=== PATIENT | female | born 1945 | race Caucasian/White ===

== ENCOUNTER 2021-11-01 18:00 | Emergency (ER) | payer MEDICARE, MEDICAID, SELFPAY ==
[2021-11-01 18:20] VITALS: BP 140/80; PULSE 107; RESP 20; TEMP 36.9; O2SAT 97; BMI 20.1
[2021-11-01 18:40] LABS: Apearance,Urine Clear (Clear); Color,Urine Dark Yellow (Yellow)
--- NOTE | 2021-11-01 18:40 | PC.NURSE ---
PATIENT SENT TO ER PER Avery MUELLER APRN FOR FURTHER EVALUATION. REPORT GIVEN TO Ines PITTS RN BY Avery MUELLER APRN
[2021-11-01 18:41] LABS: Bilirubin,Urine Negative (Negative); Blood, Urine Trace (Negative); Glucose,Urine (UA) Negative (Negative); Ketones,Urine Negative (Negative); PH,Urine 5.5 (5.0-8.5); Protein,Urine Negative (Negative); UTC Leukocyte Esterase,Urine Trace (Negative); UTC Nitrate,Urine Negative (Negative); Urobilinogen,Urine 0.2 EU/dl (0.2)
--- NOTE | 2021-11-01 18:43 | HMH.EDUTC ---
[facility] – [place], [place] Disposition Clinical Impression: Weakness Disposition: Still a Patient Condition on Discharge: Fair Referrals: Zeferino Muñiz DO [Primary Care Provider] - Medical Decision Making - Gavino Inquiry Pt receiving controlled substance: No Gavino was queried for this patient: No Vital Signs: 11/01/21 18:20 Temperature 98.4 F Temperature Source Oral Pulse Rate [Right Brachial] 107 H Respiratory Rate 20 Blood Pressure [Right Arm] 140/80 Blood Pressure Mean [Right Arm] 100 Blood Pressure Source [Right Arm] Automatic Cuff Blood Pressure Position [Right Arm] Sitting 02 Sat by Pulse Oximetry 97 Oxygen Delivery Method Room Air - Lab Data Lab Results 11/01/21 18:26: Urine Color Dark yellow, Urine Appearance Clear, Urine pH 5.5, Ur Specific [place] 1.030, Urine Protein Negative, Urine Glucose (UA) Negative, Urine Ketones Negative, Urine Blood Trace, Urine Nitrate Negative, Urine Bilirubin Negative, Urine Urobilinogen 0.2, Ur Leukocyte Esterase Trace Orders (Tests/Meds): ORDERS Category Date Time Status Urine Culture Stat Micro 11/01/21 18:38 Received Medical Decision Narrative: Due to patient age and complaints of new onset weakness, edema in lower extremities and unable to walk without falling and episodes of confusion discussed with family and recommended transfer to the ED for further work up and evaluation and family agreed Called ED spoke with Angella and patient was assigned room 1 patient was moved to the ED for further work up and evaluation [facility] – [place], [place] HPI - General Stated complaint: UTI, ears, weak, dizzy Time Seen by Provider: 11/01/21 18:43 Mode of Arrival: Ambulatory Source of Information: Patient, Relative Limitations: No Limitations Description of Symptoms (Recalled from Triage Doc. by RN): PATIENT AND FAMILY REPORT WEAKNESS, TROUBLE WALKING, BLE EDEMA, EPISODES OF CONFUSION, DIZZINESS AND FREQUENT FALLS. PATIENT STATES SHE HAS A HISTORY OF VERITGO, BUT HER DIZZINESS HAS GOTTEN WORSE OVER THE PAST FEW MONTHS. SHE ALSO STATES EDEMA TO LEGS IS NEW WELL HEENT Symptoms (Recalled from RN notes): No Resp Symptoms (Recalled from RN notes): No Skin Symptoms (Recalled from RN notes): No MS Symptoms (Recalled from RN notes): No Functional Status (Recalled from RN notes): WNL - History of Present Illness Provider Complaint: Patient family states that patient was living in [facility] but she was falling alot and they was worried so they brought her here to live with them States that she was able to walk ok with her walker prior but now has been unable to walk without falling and without assistance, States she has been having episodes of confusion, dizziness, weakness and bilateral swelling in her lower extremities that is new States that she has a history of vertigo but it has got worse now where she falls if she does not have someone holding onto her. Daughter states that she had blood work in [employer] in Sep and her WBC count was high and her iron was low. and she was put on antibiotics which she has finished now States that they was concerned because she was so weak so they brought her in to get her checked out - Worker's Comp Is this a Worker's Comp case?: No [facility] History - Hepatitis A Screen Drug use history?: No High risk sexual behaviors?: No History of sexually transmitted infection?: No Currently employed?: No Childcare worker?: No Do you have indoor plumbing?: Yes Do you have electricity?: Yes Attestation statement:: This patient has been screened for Hepatitis A risk factors. I have reviewed the patient's past medical history: Yes - Social History Smoking Status: Current every day smoker Tobacco Type: cigarettes # Packs/Day (cigarettes): 1 Alcohol Intake: never Occupational Status: other ROS Obtained: Yes All systems reviewed & no additional complaints, Yes Systems reviewed as appropriate & no additional complaints - Constitutional Constitutional: Reports system re
[2021-11-01 18:47] VITALS: BP 152/82; PULSE 104; RESP 16; TEMP 36.6; O2SAT 98; BMI 26.9
--- NOTE | 2021-11-01 19:00 | ECG_ITS ---
APPROVED REPORT Exam: Resting ECG HR:98 bpm ECG Measurements Heart Rate 98 AXES PA 155 P 65 QRSd 100 QRS -56 QT 371 T 74 QTc 426 Conclusion SINUS RHYTHM POSSIBLE LEFT ATRIAL ENLARGEMENT [-0.1mV P-WAVE IN V1/V2] LEFT ANTERIOR FASCICULAR BLOCK [QRS AXIS <= -45, QR IN I, RS IN II] ABNORMAL ECG UNCONFIRMED REPORT Electronically signed by : George Ababsi MD 11/02/2021 09:10:42
--- NOTE | 2021-11-01 19:05 | XR_ITS ---
PROCEDURE INFORMATION: Exam: XR Chest Exam date and time: 11/01/2021 7:05 PM Age: 76 years old Clinical indication: Other: Weakness TECHNIQUE: Imaging protocol: XR of the chest. Views: 1 view. COMPARISON: No relevant prior studies available. FINDINGS: Lungs: Right basilar subsegmental atelectasis. Postsurgical changes left mid lung. Pleural spaces: Unremarkable. No pleural effusion. No pneumothorax. Heart/Mediastinum: Unremarkable. No cardiomegaly. Bones/joints: Prior vertebroplasty lower T-spine. IMPRESSION: Right basilar subsegmental atelectasis.
[2021-11-01 19:22] LABS: Basophils # 0.1 K/mm3 (0-0.2); Basophils % 0.4 % (0.1-2.0); Eosinophils # 0.1 K/mm3 (0.0-0.4); Hematocrit 48.7 % (37.0-47.0); Hemoglobin 15.3 g/dL (12.2-16.2); Lymphocytes # 1.3 K/mm3 (0.7-4.5); Lymphocytes % 9.7 % (10-50); Mean Corpuscular HGB Conc 31.5 g/dL (31.8-35.4); Mean Corpuscular Hemoglobin 30.9 pg (27.0-31.2); Mean Corpuscular Volume 98.1 fl (81-99); Mean Platelet Volume 7.5 fl (7.4-10.4); Monocytes # 0.6 K/mm3 (0.1-1.0); Monocytes % 4.2 % (1.7-9.3); Neutrophils % 84.7 % (37.0-80.0); Platelet Count 464 K/mm3 (142-424); Red Blood Count 4.97 M/mm3 (4.20-5.40); Red Cell Distribution Width 13.8 % (11.5-17.5); White Blood Count 12.9 K/mm3 (4.8-10.8)
--- NOTE | 2021-11-01 19:27 | CT_ITS ---
PROCEDURE INFORMATION: Exam: CT Head Without Contrast Exam date and time: 11/01/2021 7:27 PM Age: 76 years old Clinical indication: Weakness, extremity; Additional info: Frequent falls on eliquis TECHNIQUE: Imaging protocol: Computed tomography of the head without contrast. Radiation optimization: All CT scans at this facility use at least one of these dose optimization techniques: automated exposure control; mA and/or kV adjustment per patient size (includes targeted exams where dose is matched to clinical indication); or iterative reconstruction. Other technique: STROKE PROTOCOL was implemented. COMPARISON: No relevant prior studies available. FINDINGS: Brain: Periventricular and subcortical small vessel ischemic changes. Mild atrophy associated. No acute hemorrhage, mass effect, midline shift, or extra-axial fluid collection. Cerebral ventricles: No ventriculomegaly. Paranasal sinuses: Visualized sinuses are unremarkable. No fluid levels. Mastoid air cells: Visualized mastoid air cells are well aerated. Bones/joints: Unremarkable. No acute fracture. Soft tissues: Unremarkable. IMPRESSION: No acute intracranial abnormality. ASSESSMENT: ASPECTS ([place] Stroke Program Early CT Score) is 10.
--- NOTE | 2021-11-01 19:27 | CT_ITS ---
PROCEDURE INFORMATION: Exam: CT Angiography Neck With Contrast Exam date and time: 11/01/2021 7:27 PM Age: 76 years old Clinical indication: Weakness and other: Frequent falls on elequis; Prior surgery; Surgery date: 6+ months; Surgery type: Left endarterectomy; Additional info: Frequent falls on eliquis TECHNIQUE: Imaging protocol: Computed tomography angiography of the neck with contrast. 3D rendering (Not supervised by radiologist): MIP and/or 3D reconstructed images were created by the technologist. Radiation optimization: All CT scans at this facility use at least one of these dose optimization techniques: automated exposure control; mA and/or kV adjustment per patient size (includes targeted exams where dose is matched to clinical indication); or iterative reconstruction. Contrast material: ISOVUE 370; Contrast volume: 100 ml; Contrast route: INTRAVENOUS (IV); COMPARISON: CT HEAD/BRAIN WO CON 11/01/2021 7:59 PM FINDINGS: Right common carotid artery: No stenosis. No dissection or occlusion. Right internal carotid artery: No stenosis of the extracranial segment. No dissection or occlusion. Right external carotid artery: No occlusion or stenosis of the origin. Left common carotid artery: No stenosis. No dissection or occlusion. Left internal carotid artery: No stenosis of the extracranial segment. No dissection or occlusion. Left external carotid artery: No occlusion or stenosis of the origin. Right vertebral artery: No stenosis. No dissection or occlusion. Left vertebral artery: No stenosis. No dissection or occlusion. Soft tissues: Normal. No significant soft tissue swelling. Bones/joints: No acute fracture. IMPRESSION: No stenosis or occlusion. REFERENCES: NASCET CRITERIA. The degree of internal carotid artery stenosis is based on NASCET criteria. Normal is no stenosis. Mild is less than 50% stenosis. Moderate is 50-69% stenosis. Severe is 70% to 99% stenosis. Total occlusion is no detectable patent lumen.
--- NOTE | 2021-11-01 19:27 | CT_ITS ---
PROCEDURE INFORMATION: Exam: CT Angiography Head With Contrast, Arteriography Exam date and time: 11/01/2021 7:27 PM Age: 76 years old Clinical indication: Other: Frequent falls on eliquis; Prior surgery; Surgery date: 6+ months; Surgery type: Left endarterectomy TECHNIQUE: Imaging protocol: Computed tomography angiography of the head with contrast. Exam focused on the arteries. 3D rendering (Not supervised by radiologist): MIP and/or 3D reconstructed images were created by the technologist. Radiation optimization: All CT scans at this facility use at least one of these dose optimization techniques: automated exposure control; mA and/or kV adjustment per patient size (includes targeted exams where dose is matched to clinical indication); or iterative reconstruction. Contrast material: ISOVUE 370; Contrast volume: 100 ml; Contrast route: INTRAVENOUS (IV); COMPARISON: CT HEAD/BRAIN WO CON 11/01/2021 7:59 PM FINDINGS: ANTERIOR CIRCULATION: Right internal carotid artery: Unremarkable. Intracranial segment is patent with no significant stenosis. No aneurysm. Right middle cerebral artery: Unremarkable. No occlusion or significant stenosis. No aneurysm. Right anterior cerebral artery: Unremarkable. No occlusion or significant stenosis. No aneurysm. Left internal carotid artery: Unremarkable. Intracranial segment is patent with no significant stenosis. No aneurysm. Left middle cerebral artery: Unremarkable. No occlusion or significant stenosis. No aneurysm. Left anterior cerebral artery: Unremarkable. No occlusion or significant stenosis. No aneurysm. POSTERIOR CIRCULATION: Right vertebral artery: Unremarkable. No occlusion or significant stenosis. No aneurysm. Left vertebral artery: Unremarkable. No occlusion or significant stenosis. No aneurysm. Basilar artery: Unremarkable. No occlusion or significant stenosis. No aneurysm. Right posterior cerebral artery: Unremarkable. No occlusion or significant stenosis. No aneurysm. Left posterior cerebral artery: Unremarkable. No occlusion or significant stenosis. No aneurysm. Brain: No definite mass, mass effect, or midline shift. Cerebral ventricles: No ventriculomegaly. Bones/joints: Unremarkable. No acute fracture. Soft tissues: Unremarkable. IMPRESSION: No large vessel stenosis or occlusion.
[2021-11-01 19:28] LABS: Alanine Aminotransferase 23 U/L (12-78); Albumin Level 4.1 g/dl (3.5-5.0); Albumin/Globulin Ratio 1.2 (1.1-1.8); Alkaline Phosphatase 139 U/L (38-126); Anion Gap 12.5 mEq/L (5-15); Aspartate Amino Transferase 40 U/L (14-36); Bilirubin,Total 0.7 mg/dl (0.2-1.3); Blood Urea Nitrogen 24 mg/dl (7-17); Calcium 9.2 mg/dl (8.4-10.2); Carbon Dioxide 27 mmol/L (22.0-30.0); Chloride 104 mmol/L (98-107); Creatinine Clearance Estimated 47 mL/min (50-200); Estimated Glomerular Filt Rate 54 ml/min (>60); GFR (African American) 65 ML/MIN (>60); Globulin 3.3 g/dL (1.3-3.2); Glucose 109 mg/dl (74-100); Potassium 4.5 mmoL/L (3.5-5.1); Sodium 139 mmol/L (136-145); Total Protein,Serum 7.4 g/dl (6.3-8.2)
[2021-11-01 19:33] LABS: C-Reactive Protein 8.8 mg/L (0-4)
[2021-11-01 19:42] LABS: Troponin I < 0.01 ng/ml (0.00-0.034)
[2021-11-01 19:46] LABS: Procalcitonin 0.069 ng/mL (0.0-2.0)
[2021-11-01 19:49] LABS: Activated Partial Thrombo Time 29.3 seconds (22.8-30.6); INR 1.12 (0.9-1.1); Prothrombin Time 12.6 seconds (10.1-12.5)
[2021-11-01 19:58] LABS: Lactic Acid 1.1 mmol/L (0.7-2.1)
[2021-11-01 20:01] LABS: Erythrocyte Sedimentation Rate 8 mm/hr (0-30)
--- NOTE | 2021-11-01 20:12 | HMH.EDGENADL ---
ED Disposition Clinical Impression: Weakness, Falls Disposition: Home, Self-Care Condition on Discharge: Fair Referrals: Zeferino Muñiz DO [Primary Care Provider] - - Critical Care Critical Care Time: No Attestation: On 11/01/21, the high probability of a clinically significant, sudden or life threatening deterioration of the following system(s) required my full and direct attention, intervention and personal management. The time I documented below is in addition to time spent performing reported procedures but includes the following listed in this critical care notation. Medical Decision Making - Gavino Inquiry Pt receiving controlled substance: No Vital Signs: 11/01/21 18:20 11/01/21 18:47 Temperature 98.4 F 97.8 F Temperature Source Oral Oral Pulse Rate [Right Brachial] 107 H 104 H Respiratory Rate 20 16 Blood Pressure [Right Arm] 140/80 152/82 H Blood Pressure Mean [Right Arm] 100 105 Blood Pressure Source [Right Arm] Automatic Cuff Blood Pressure Position [Right Arm] Sitting 02 Sat by Pulse Oximetry 97 98 Oxygen Delivery Method Room Air - Lab Data Lab Results 11/01/21 18:26: Urine Color Dark yellow, Urine Appearance Clear, Urine pH 5.5, Ur Specific [place] 1.030, Urine Protein Negative, Urine Glucose (UA) Negative, Urine Ketones Negative, Urine Blood Trace, Urine Nitrate Negative, Urine Bilirubin Negative, Urine Urobilinogen 0.2, Ur Leukocyte Esterase Trace 11/01/21 19:02: WBC 12.9 H, RBC 4.97, Hgb 15.3, Hct 48.7 H, MCV 98.1, MCH 30.9, MCHC 31.5 L, RDW 13.8, Plt Count 464 H, MPV 7.5, Neut % (Auto) 84.7 H, Lymph % (Auto) 9.7 L, Daniels % (Auto) 4.2, Eos % (Auto) 1.0, Baso % (Auto) 0.4, Neut # (Auto) 11.0 H, Lymph # (Auto) 1.3, Daniels # (Auto) 0.6, Eos # (Auto) 0.1, Baso # (Auto) 0.1, ESR 8 11/01/21 19:02: Sodium 139, Potassium 4.5, Chloride 104, Carbon Dioxide 27, Anion Gap 12.5, BUN 24 H, Creatinine 1.00, Estimated Creat Clear 47, Estimated GFR 54 L, Est GFR ( Amer) 65, Glucose 109 H, Calcium 9.2, Total Bilirubin 0.7, AST 40 H, ALT 23, Alkaline Phosphatase 139 H, Troponin I < 0.01, C-Reactive Protein 8.8 H, Total Protein 7.4, Albumin 4.1, Globulin 3.3 H, Albumin/Globulin Ratio 1.2, Procalcitonin 0.069 11/01/21 19:02: PT 12.6 H, INR 1.12 H, APTT 29.3 11/01/21 19:02: NT-Pro-B Natriuret Pep 262 11/01/21 19:39: Lactate 1.1 11/01/21 20:37: SARS-CoV-2 (PCR) Not detected, Influenza A Untype (PCR) Not detected, Influenza Type B (PCR) Not detected Result diagrams: 11/01/21 19:02 11/01/21 19:02 Orders (Tests/Meds): ED MEDICATIONS Discontinued Medications Generic Name Dose Route Start Last Admin Trade Name Valdezq PRN Reason Stop Dose Admin Iopamidol 100 ml 11/01/21 20:47 11/01/21 20:48 Iopamidol-370 (76%);100ml Bottle IV 11/01/21 20:48 100 ml ONCE ONE Administration Sodium Chloride 40 ml 11/01/21 20:47 11/01/21 20:48 0.9 % Sodium Chloride 50 Ml Vial IV 11/01/21 20:48 40 ml ONCE ONE Administration Sodium Chloride 10 ml 11/01/21 20:47 11/01/21 20:48 Sodium Chloride 0.9% 10ml Syr (Rad Only) IV 11/01/21 20:48 10 ml ONCE ONE Administration ORDERS Category Date Time Status Troponin I Q3H Lab 11/01/21 22:15 Ordered Troponin I Q3H Lab 11/02/21 01:15 Ordered Urine Culture Stat Micro 11/01/21 18:38 Received Medical Decision Narrative: 76 yo female presents for evaluation of increased falls from standing and intermittent confusion for last 1.5 months. Has hit head during one of the falls. She appears comfortable, has nonfocal neuro exam, GCS 15, is on room air, afebrile, mild tachycardia. No incontinence. Is not altered here in the ED. DDx includes but not limited ICH, skull fracture, hydrocephalus, intracranial mass, electrolyte abnormality, arrhythmia, ACS, bilateral lymphedema. HDS, NAD, here in the ED. Will obtain labs and imaging to further assess. labs show mild leukocytosis with wbc 12k, crp 8. cth, cta h/n without acute and actionable findings. cxr
[2021-11-01 20:38] LABS: NT Pro Brain Natriuretic Pep. 262 pg/mL (0-450)
[2021-11-01 20:41] LABS: Coronavirus 19, PCR Not Detected (NotDetected); Influenza A, PCR Not Detected (NotDetected); Influenza B, PCR Not Detected (NotDetected)
[2021-11-01 21:43] VITALS: BP 146/80; PULSE 91; RESP 16; TEMP 36.6; O2SAT 98
== END 2021-11-01 21:45 | disposition home or self-care (01) ==
LOC: UTC 18:14 → ER 18:46
PROVIDERS: Nurse Practitioner; Emergency Provider Student in an Organized Health Care Education/Training Program; PCP Family Medicine
DX: R42 Dizziness and giddiness (principal); R53.83 Other fatigue; R06.09 Other forms of dyspnea; M79.662 Pain in left lower leg; M79.661 Pain in right lower leg; Z86.718 Personal history of other venous thrombosis and embolism; Z79.01 Long term (current) use of anticoagulants; Z91.81 History of falling; Z79.899 Other long term (current) drug therapy
CPT/HCPCS: 70450; 70496; 70498; 71045; 80053; 81003; 83605; 83880; 84145; 84484; 85025; 85610; 85651; 85730; 86140; 87086; 87088; 87186; 93005; 99283; 99284; C9803; Q9967; U0003; U0005

== ENCOUNTER 2021-11-23 18:32 | Inpatient (IN) | payer MEDICARE, MEDICAID, SELFPAY ==
[2021-11-23] VITALS (11 sets, daily range): BP systolic 88–131; BP diastolic 52–71; PULSE 97–111; RESP 16; TEMP 36.8; O2SAT 93–98; BMI 20.9; BMI 21.6
--- NOTE | 2021-11-23 18:58 | XR_ITS ---
PROCEDURE INFORMATION: Exam: XR Right Femur Exam date and time: 11/23/2021 6:58 PM Age: 76 years old Clinical indication: Injury or trauma; Fall; Blunt trauma; Hip; Right TECHNIQUE: Imaging protocol: XR Right femur. Views: 2 views. COMPARISON: CR XR HIP RT 2-3V W/PELVIS 11/23/2021 7:20 PM FINDINGS: Bones/joints: There is an acute, comminuted inter trochanteric right femoral fracture. There is mild displacement of multiple fracture fragments, and there is varus angulation at the fracture site. The femur head and neck remain intact, and the head is normally aligned at the right hip joint. Visualized right acetabulum is intact. There is osteopenia. No underlying lytic bone lesions are seen to suggest a pathologic fracture. Distal femur appears intact. No significant bony arthritic deformities at the hip or knee. Soft tissues: No radiopaque foreign bodies seen. Soft tissue edema at the hip. Vasculature: Atherosclerotic calcified plaques in the right femoral and popliteal arteries. IMPRESSION: 1. Comminuted, mildly displaced and angulated right femoral intratrochanteric fracture as detailed above. 2. Osteopenia. 3. Atherosclerotic disease. 4. Additional nonemergency and chronic findings as above.
--- NOTE | 2021-11-23 18:58 | XR_ITS ---
PROCEDURE INFORMATION: Exam: XR Right Hip Exam date and time: 11/23/2021 6:58 PM Age: 76 years old Clinical indication: Injury or trauma; Fall; Blunt trauma (contusions or hematomas); Right; Hip TECHNIQUE: Imaging protocol: XR Right hip. Views: 2 or 3 views hip with pelvis when performed. COMPARISON: No relevant prior studies available. FINDINGS: Bones/joints: Acute comminuted, displaced and angulated right femoral intratrochanteric fracture. There is varus angulation at the fracture site, displacement of multiple fracture fragments, but no evidence of dislocation of the femur head. Osteopenia.There are no lytic skeletal lesions seen. No definite pelvic fracture is seen. Left hip joint remains intact. Lower lumbar degenerative changes with disc narrowing and spondylosis. Sacroiliitis. The study is slightly limited due to osteopenia, and overlying bowel content partially obscuring pelvic bones. Soft tissues: Atherosclerotic disease in the lower extremities. Vasculature: Pelvic vascular calcifications. 5 mm density projected over the left upper quadrant, which could be dense bowel content or vascular calcification. IMPRESSION: 1. Acute comminuted intratrochanteric right femur fracture, with displaced fracture fragments and varus angulation. 2. No dislocation at the hip joint. 3. Osteopenia, slightly limiting the exam. 4. No other fractures detected. 5. Additional nonemergency and chronic findings as above.
--- NOTE | 2021-11-23 19:34 | XR_ITS ---
PROCEDURE INFORMATION: Exam: XR Chest Exam date and time: 11/23/2021 7:34 PM Age: 76 years old Clinical indication: Injury or trauma; Fall; Blunt trauma (contusions or hematomas) TECHNIQUE: Imaging protocol: XR of the chest. Views: 1 view. AP supine exam 7:37 p.m. COMPARISON: CR XR CHEST PORTABLE 11/01/2021 7:54 PM FINDINGS: Lungs: Platelike and discoid atelectasis in the lower right lung. Minimal linear atelectasis or scarring in the periphery of the mid left lung with overlying surgical sutures. No consolidation. Pleural spaces: There is a small layering left pleural effusion. No definite pneumothorax, but this is a limited supine exam. No definite effusion or pneumothorax on the right. Heart/Mediastinum: Cardiac silhouette within normal limits considering AP technique. Calcified plaques in the aortic arch. Bones/joints: Osteopenia. Old thoracic vertebral compression fracture with vertebroplasty cement. Some mild rib deformities in the inferolateral left ribs, and lateral-mid right ribs, of indeterminate age. IMPRESSION: 1. Small layering left pleural effusion. No definite pneumothorax is seen on this limited supine exam. 2. Dense discoid and platelike atelectasis in the right lung base, worsened since the prior exam. Chronic scarring in the mid left lung. No consolidation. 3. Multiple lower left-lateral rib deformities of indeterminate age, and question some lateral right mid rib deformities. These are suboptimally evaluated due to osteopenia. If there is clinical suspicion of acute fracture, a rib detail series may help to exclude acute injuries.
--- NOTE | 2021-11-23 19:52 | HMH.EDUTC ---
[facility] [place] Impression: Fracture of femur Qualifiers: Encounter type: initial encounter Femur location: unspecified portion of femur Fracture type: closed Fracture morphology: unspecified fracture morphology Laterality: right Qualified Code(s): S72.91XA - Unspecified fracture of right femur, initial encounter for closed fracture Disposition: Still a Patient Condition on Discharge: Good Referrals: Pricila Sahni [Primary Care Provider] - Time of Disposition: 19:57 Medical Decision Making - Gavino Inquiry Pt receiving controlled substance: No Gavino was queried for this patient: No Vital Signs: 11/23/21 18:33 11/23/21 20:03 Temperature 98.3 F 98.3 F Temperature Source Oral Oral Pulse Rate [Right] 97 H 108 H Respiratory Rate 16 16 Blood Pressure [Right Arm] 88/52 L 126/55 L Blood Pressure Mean [Right Arm] 64 78 Blood Pressure Source [Right Arm] Automatic Cuff Blood Pressure Position [Right Arm] Sitting 02 Sat by Pulse Oximetry 98 95 Oxygen Delivery Method Room Air Nasal Cannula Orders (Tests/Meds): ORDERS Category Date Time Status CT hip RT wo con Stat Cat Scan 11/23/21 20:24 Ordered - Radiology Data #1 Image(s): Hip (right) Image Reviewed: Yes I have reviewed radiologist's interpretation IMPRESSION: 1. Acute comminuted intratrochanteric right femur fracture, with displaced fracture fragments and varus angulation. 2. No dislocation at the hip joint. 3. Osteopenia, slightly limiting the exam. 4. No other fractures detected. 5. Additional nonemergency and chronic findings as above. #2 Image(s): Femur (right) Image Reviewed: Yes I have reviewed radiologist's interpretation IMPRESSION: 1. Comminuted, mildly displaced and angulated right femoral intratrochanteric fracture as detailed above. 2. Osteopenia. 3. Atherosclerotic disease. 4. Additional nonemergency and chronic findings as above. #3 Image(s): Chest Image Reviewed: Yes I have reviewed radiologist's interpretation IMPRESSION: 1. Small layering left pleural effusion. No definite pneumothorax is seen on this limited supine exam. 2. Dense discoid and platelike atelectasis in the right lung base, worsened since the prior exam. Chronic scarring in the mid left lung. No consolidation. 3. Multiple lower left-lateral rib deformities of indeterminate age, and question some lateral right mid rib deformities. These are suboptimally evaluated due to osteopenia. If there is clinical suspicion of acute fracture, a rib detail series may help to exclude acute injuries. Medical Decision Narrative: While patient was getting xray noted that she had a right femoral intratrochanteric fracture Called ED spoke with staff and patient was moved to ED from Xray for further treatment and evaluation Patient was moved to room 1 from xray report [place] [facility] [place] - General Stated complaint: fall 11/23/21 rt leg pain Time Seen by Provider: 11/23/21 18:40 Mode of Arrival: Wheelchair Source of Information: Patient Limitations: No Limitations Description of Symptoms (Recalled from Triage Doc. by RN): pt advises she lost her balance earlier and fell, has been unable to bear weight since. Pt c/o pain in the right hip/upper leg area HEENT Symptoms (Recalled from RN notes): No Resp Symptoms (Recalled from RN notes): No Skin Symptoms (Recalled from RN notes): No MS Symptoms (Recalled from RN notes): Yes (fall with right hip apin) Functional Status (Recalled from RN notes): na - History of Present Illness Provider Complaint: Patient was at home earlier when she tried to pull her Oxygen cord that was caught on something and lost her balance and fell and landed on her right hip States that she was unable to get up from the floor after falling and family member had to pick her up and she was unable to raise her leg or put any weight on her right leg States that they packed her to the vehicle and brought her in to get
--- NOTE | 2021-11-23 20:16 | PC.NURSE ---
Gave report to MARCIANO Hines Patient taken to room 1 after x-rays were obtained.
--- NOTE | 2021-11-23 20:17 | PC.NURSE ---
AMPARO LOMAX speaking with Dr. Boyce at [facility]
--- NOTE | 2021-11-23 20:17 | PC.NURSE ---
FAMILY REQUEST THAT PATIENT BE TRANSFERRED TO [facility]. PT STATES THAT ALL OF HER PRIMARY CARE IS HANDLED THROUGH [facility]
--- NOTE | 2021-11-23 20:20 | PC.NURSE ---
AMPARO LOMAX speaking with Dr. Mcguire
--- NOTE | 2021-11-23 20:24 | CT_ITS ---
PROCEDURE INFORMATION: Exam: CT Right Lower Extremity Without Contrast, Hip Exam date and time: 11/23/2021 8:24 PM Age: 76 years old Clinical indication: Injury or trauma; Fall; Blunt trauma; Hip; Right; Additional info: Femur fracture right TECHNIQUE: Imaging protocol: CT of the Right lower extremity without contrast was performed. Exam focused on the hip. 3D rendering (Not supervised by radiologist): MIP and/or 3D reconstructed images were created by the technologist. Radiation optimization: All CT scans at this facility use at least one of these dose optimization techniques: automated exposure control; mA and/or kV adjustment per patient size (includes targeted exams where dose is matched to clinical indication); or iterative reconstruction. COMPARISON: CR XR HIP RT 2-3V W/PELVIS 11/23/2021 7:20 PM FINDINGS: Bones/joints: Osteopenia. Acute comminuted inter trochanteric right femoral fracture. There are multiple mildly displaced , rotated cortical avulsion fragments of greater and lesser trochanters. The femur neck and head appear intact and the head remains normally aligned at the right hip joint. No underlying lytic lesions are seen to suggest a pathologic fracture. There is slight impaction of major fracture fragments and varus angulation at the fracture. The acetabulum appears intact. There is narrowing of the superior hip joint space suggesting underlying chondromalacia, but minimal medial femur head spurring, and no significant arthritic deformities at the acetabulum. Right hip joint effusion. Remainder of visualized pelvic bones appear intact. Soft tissues: Deep soft tissue edema and and mild hemorrhage abutting the fracture. No large, loculated, organized hematoma. No soft tissue emphysema. No radiopaque foreign bodies in the soft tissues. Subcutaneous soft tissue edema lateral to the hip. Vasculature: Atherosclerotic calcified plaques in the right external iliac, common femoral and superficial femoral arteries. IMPRESSION: 1. Acute comminuted intertrochanteric right femur fracture with some rotated and displaced fracture fragments, mild impaction of the major fracture fragments and varus angulation. 2. Femur head and neck remain intact and normally aligned at the hip joint. 3. Minimal degenerative changes at the right hip. 4. Atherosclerotic disease. 5. Additional nonemergency and chronic findings as above.
--- NOTE | 2021-11-23 20:49 | PC.NURSE ---
OR team paged per Dr. Maynor Schaefer returned call at [phone] Vivien returned call at [phone] Sameera returned call at [phone]
--- NOTE | 2021-11-23 21:51 | PC.NURSE ---
WENT IN FOR PAIN EVALUATION. PT WAS INITIALLY ASLEEP, WHEN AWOKE SHE STATED THE PAIN WAS GONE. WARM BLANKET GIVEN PT DAUGHTER AT BED SIDE. WILL CONTINUE TO MONITOR.
--- NOTE | 2021-11-23 23:59 | PC.NURSE ---
FAMILY REMAINS AT BEDSIDE. PT RESTING QUIETLY WITH EYES CLOSED. RESPIRATIONS EVEN AND NON LABORED.
[2021-11-24] VITALS (23 sets, daily range): BP systolic 92–146; BP diastolic 45–78; PULSE 96–112; RESP 13–18; TEMP 36.1–36.9; O2SAT 92–100; BMI 21.0
--- NOTE | 2021-11-24 00:48 | HMH.EDGENADL ---
ED Disposition Clinical Impression: Fracture of femur Qualifiers: Encounter type: initial encounter Femur location: unspecified portion of femur Fracture type: closed Fracture morphology: unspecified fracture morphology Laterality: right Qualified Code(s): S72.91XA - Unspecified fracture of right femur, initial encounter for closed fracture Disposition: Still a Patient Condition on Discharge: Good - Critical Care Critical Care Time: No Attestation: On 11/23/21, the high probability of a clinically significant, sudden or life threatening deterioration of the following system(s) required my full and direct attention, intervention and personal management. The time I documented below is in addition to time spent performing reported procedures but includes the following listed in this critical care notation. Medical Decision Making - Medical Records Medical records reviewed: Yes: I reviewed the patient's medical records. - Gavino Inquiry Pt receiving controlled substance: No Vital Signs: 11/23/21 18:33 11/23/21 20:03 11/23/21 20:30 Temperature 98.3 F 98.3 F Temperature Source Oral Oral Pulse Rate 102 H Pulse Rate [Right] 97 H 108 H Respiratory Rate 16 16 Blood Pressure 123/64 Blood Pressure [Right Arm] 88/52 L 126/55 L Blood Pressure Mean 77 Blood Pressure Mean [Right Arm] 64 78 Blood Pressure Source [Right Arm] Automatic Cuff Blood Pressure Position [Right Arm] Sitting 02 Sat by Pulse Oximetry 98 95 96 Oxygen Delivery Method Room Air Nasal Cannula Oxygen Flow Rate (LPM) 11/23/21 21:00 11/23/21 21:22 11/23/21 21:27 Temperature Temperature Source Pulse Rate 102 H 110 H 109 H Pulse Rate [Right] Respiratory Rate Blood Pressure 128/71 128/68 119/66 Blood Pressure [Right Arm] Blood Pressure Mean 85 79 Blood Pressure Mean [Right Arm] Blood Pressure Source [Right Arm] Blood Pressure Position [Right Arm] 02 Sat by Pulse Oximetry 95 93 L Oxygen Delivery Method Oxygen Flow Rate (LPM) 11/23/21 21:30 11/23/21 22:00 11/23/21 22:30 Temperature Temperature Source Pulse Rate 102 H 102 H 111 H Pulse Rate [Right] Respiratory Rate Blood Pressure 124/64 113/65 128/69 Blood Pressure [Right Arm] Blood Pressure Mean 85 78 Blood Pressure Mean [Right Arm] Blood Pressure Source [Right Arm] Blood Pressure Position [Right Arm] 02 Sat by Pulse Oximetry 95 95 Oxygen Delivery Method Nasal Cannula Oxygen Flow Rate (LPM) 2 11/23/21 22:45 11/23/21 23:30 Temperature Temperature Source Pulse Rate 111 H 108 H Pulse Rate [Right] Respiratory Rate Blood Pressure 131/68 119/62 Blood Pressure [Right Arm] Blood Pressure Mean Blood Pressure Mean [Right Arm] Blood Pressure Source [Right Arm] Blood Pressure Position [Right Arm] 02 Sat by Pulse Oximetry 96 94 L Oxygen Delivery Method Nasal Cannula Nasal Cannula Oxygen Flow Rate (LPM) 2 2 - Lab Data Lab results reviewed: Yes: I reviewed the patient's lab results. Orders (Tests/Meds): ED MEDICATIONS Discontinued Medications Generic Name Dose Route Start Last Admin Trade Name Freq PRN Reason Stop Dose Admin Morphine Sulfate 2 mg 11/23/21 20:46 11/23/21 21:20 Morphine 2mg/Ml Syringe IV 11/23/21 20:47 2 mg ONCE ONE Administration Medical Decision Narrative: Miss Quach is a 76yo female w/ PMH for COPD (2L NC), PE/DVT was taken off eliquis 10/2021, and currently being treated for pneumonia w/ doxycycline and prednisone who presents to the ED for mechanical fall w/ isolated (R) hip pain. Denies hitting head, -LOC. Denies any other symptoms. Patient is neurovascularly intact and hemodynamically stable on arrival. Physical exam patient (R) hip is externally rotated, palpable pulses. Patient has no sensory deficits. Patient is given morphine x2 on arrival for pain control. Differentials to consider include: fractures, dislocations, no concern for other polytrauma b
--- NOTE | 2021-11-24 00:49 | PC.NURSE ---
PT DENIES PAIN. FAMILY AT BEDSIDE. PT/FAMILY UPDATED WITH EXPECTED WAIT TIMES. WCM.
[2021-11-24 01:01] LABS: Coronavirus 19, PCR Not Detected (NotDetected); Influenza A, PCR Not Detected (NotDetected); Influenza B, PCR Not Detected (NotDetected)
--- NOTE | 2021-11-24 01:33 | PC.NURSE ---
called for pt transport
--- NOTE | 2021-11-24 01:50 | PC.NURSE ---
PT ARRIVED TO FLOOR VIA STRETCHER FROM ED W/STAFF @ [phone]
[2021-11-24 05:16] LABS: Basophils # 0.1 K/mm3 (0-0.2); Basophils % 0.5 % (0.1-2.0); Eosinophils % 0.2 % (0.1-12.0); Hematocrit 34.5 % (37.0-47.0); Hemoglobin 10.7 g/dL (12.2-16.2); Lymphocytes # 1.2 K/mm3 (0.7-4.5); Lymphocytes % 8.1 % (10-50); Mean Corpuscular HGB Conc 31.1 g/dL (31.8-35.4); Mean Corpuscular Hemoglobin 30.7 pg (27.0-31.2); Mean Corpuscular Volume 98.5 fl (81-99); Mean Platelet Volume 8.1 fl (7.4-10.4); Monocytes % 6.5 % (1.7-9.3); Neutrophils # 12.5 K/mm3 (1.8-7.8); Neutrophils % 84.6 % (37.0-80.0); Platelet Count 284 K/mm3 (142-424); Red Cell Distribution Width 14.7 % (11.5-17.5); White Blood Count 14.7 K/mm3 (4.8-10.8)
[2021-11-24 05:25] LABS: Lactic Acid 0.9 mmol/L (0.7-2.1)
[2021-11-24 05:32] LABS: Chloride 102 mmol/L (98-107); Potassium 4.6 mmoL/L (3.5-5.1); Sodium 135 mmol/L (136-145)
[2021-11-24 05:35] LABS: Anion Gap 5.6 mEq/L (5-15); Blood Urea Nitrogen 19 mg/dl (7-17); Carbon Dioxide 32 mmol/L (22.0-30.0); Creatinine Clearance Estimated 36 mL/min (50-200); Estimated Glomerular Filt Rate 81 ml/min (>60); GFR (African American) 98 ML/MIN (>60)
[2021-11-24 05:36] LABS: Glucose 98 mg/dl (74-100)
--- NOTE | 2021-11-24 07:15 | P.PN_ITS ---
[facility] Anesthesia Checklist - Patient Identification Patient Identification: Arm Band - Structural Data Admitted From: Inpatient Planned Operative Procedure/s: Gamma nail Consent for Planned Operative Procedure(s) Verified: Yes - NPO Status Verified Time NPO: 00:00 - Airway Assessment C-Spine Mobility Assessed: Yes TMJ Mobility Assessed: Yes Dentition: Dentures-good fit - Neurological Assessment Level of Consciousness: Awake Hx Seizures: No Numbness or tingling in extremities: No - Anesthesia Plan Anesthesia Risk discussed: Yes Anesthesia Plan: Verified ASA Class: III Anesthesia Type: General [facility] History I have reviewed the patient's past medical history: Yes Medical History: Reports:: Cancer, Chronic Obstructive Pulmonary Disease (COPD), Home Oxygen (2L), Hyperlipidemia, Lung Disease (Recent neumonia/bronchitis) Denies:: Diabetes Mellitus Type 1, Diabetes Mellitus Type 2, MRSA *Have you ever received a pneumonia vaccine?: Yes *Have you received a flu vaccine this season?: No Other Medical History: Reports: Anemia, Hypothyroidism, Thyroid Disease Anesthesia experience/problems:: None Laterality Cases: Left: Other Other Surgeries: Yes: Cancer Surgery (nodule removed from L lung), Colonoscopy, EGD, Hysterectomy-Total Amputation: No Fractures: Yes (Left wrist) - *Social History Last grade of school completed: High school graduate Smoking Status: Former smoker Tobacco Type: cigarettes # Packs/Day (cigarettes): 1 Alcohol Intake: never Substance Use Type: denies use *Occupational Status:: retired Housing: house Household Members: family *Travel in the last 8 weeks: None Family Hx:: Cancer, Coronary Artery Disease, Heart Attack, Hyperlipidemia, Hypertension
--- NOTE | 2021-11-24 07:42 | ECG_ITS ---
APPROVED REPORT Exam: Resting ECG HR:103 bpm ECG Measurements Heart Rate 103 AXES [place] 133 P 53 QRSd 93 QRS -35 QT 320 T 50 QTc 380 Conclusion SINUS TACHYCARDIA POSSIBLE LEFT ATRIAL ENLARGEMENT [-0.1mV P-WAVE IN V1/V2] LEFT AXIS DEVIATION Old Q wave in inferior leads ABNORMAL ECG UNCONFIRMED REPORT Electronically signed by : George Abbasi MD 11/24/2021 13:48:16
--- NOTE | 2021-11-24 07:47 | HMH.ORTHOCON ---
*Admission Date: 11/23/21 *Reason for consult:: Right intertrochanteric femur fracture *History of present illness: 76-year-old female, history of COPD, history of PE/blood clots, previously on Eliquis, got tangled in her oxygen tubing yesterday, fell from ground-level, complained of right hip pain and inability to ambulate. She denies head trauma or loss of consciousness. Denies antecedent hip pain. No history of cancer. She was seen in the emergency department where radiographs and subsequent CT scan demonstrated a comminuted right intertrochanteric femur fracture for which I was consulted. [facility] History Medical History: Reports:: Cancer, Chronic Obstructive Pulmonary Disease (COPD), Home Oxygen (2L), Hyperlipidemia, Lung Disease (Recent neumonia/bronchitis) Denies:: Diabetes Mellitus Type 1, Diabetes Mellitus Type 2, MRSA, Seizures *Have you ever received a pneumonia vaccine?: Yes *Have you received a flu vaccine this season?: No Other Medical History: Reports: Anemia, Hypothyroidism, Thyroid Disease Anesthesia experience/problems:: None Laterality Cases: Left: Other Other Surgeries: Yes: Cancer Surgery (nodule removed from L lung), Colonoscopy, EGD, Hysterectomy-Total Amputation: No Fractures: Yes (Left wrist) - *Social History Last grade of school completed: High school graduate Smoking Status: Former smoker Tobacco Type: cigarettes # Packs/Day (cigarettes): 1 Alcohol Intake: never Substance Use Type: denies use *Occupational Status:: retired Housing: house Household Members: family *Travel in the last 8 weeks: None Family Hx:: Cancer, Coronary Artery Disease, Heart Attack, Hyperlipidemia, Hypertension Review of Systems - Constitutional Denies fever(s) - Eyes Denies blind spots - ENT Denies abnormal hearing - *Cardiovascular Denies chest pain - *Respiratory Denies shortness of breath - *Gastrointestinal Denies abdominal pain - *Genitourinary Denies urinary incontinence - *Musculoskeletal Reports abnormal walking, Reports joint pain - Integumentary/Breasts Denies hair loss - *Neurologic Denies behavioral changes - Psychiatric Denies abnormal sleep pattern, Denies behavioral changes - Endocrine Denies cold intolerance, Denies heat intolerance - Hematologic/Lymphatic Denies easy bleeding, Denies easy bruising - Allergic/Immunologic Denies GI upset with certain foods Meds Home Medications Medication Instructions Recorded Confirmed Type Amitriptyline HCl [Elavil 10mg 50 mg PO HS 11/01/21 11/23/21 History tablet] Cyanocobalamin (Vitamin B-12) 1,000 mcg PO DAILY 11/01/21 11/23/21 History [Vitamin B-12 1000mcg Tablet] Ezetimibe [Zetia] 10 mg PO DAILY 11/01/21 11/23/21 History Levothyroxine Sodium 175 mcg PO DAILY 11/01/21 11/23/21 History [Levothyroxine 175mcg (0.175mg) Tab] Levothyroxine Sodium 88 mcg PO DAILY 11/01/21 11/23/21 History [Levothyroxine 88mcg (0.088mg) Tab] Meclizine HCl [Antivert 25mg 25 mg PO NEEDED PRN 11/01/21 11/23/21 History tablet] buPROPion HCL [Wellbutrin SR 100mg 200 mg PO DAILY 11/01/21 11/23/21 History Tablet] Allergies Allergy/AdvReac Type Severity Reaction Status Date / Time No Known Allergies Allergy Verified 11/01/21 19:04 Exam Vital signs and Labs for Last 24 Hours: Temp Pulse Resp BP Pulse Ox 97.9 F 107 H 17 102/73 L 97 11/24/21 01:56 11/24/21 01:56 11/24/21 01:56 11/24/21 01:56 11/24/21 00:03 Laboratory Results - last 24 hr 11/23/21 20:03: SARS-CoV-2 (PCR) Not detected, Influenza A Untype (PCR) Not detected, Influenza Type B (PCR) Not detected 11/24/21 05:05: WBC 14.7 H, RBC 3.50 L, Hgb 10.7 L, Hct 34.5 L, MCV 98.5, MCH 30.7, MCHC 31.1 L, RDW 14.7, Plt Count 284, MPV 8.1, Neut % (Auto) 84.6 H, Lymph % (Auto) 8.1 L, [place] % (Auto) 6.5, Eos % (Auto) 0.2, Baso % (Auto) 0.5, Neut # (Auto) 12.5 H, Lymph # (Auto) 1.2, [place] # (Auto) 1.0, Eos # (Auto) 0.0, Baso # (Auto) 0.1 11/24/21 05:05: Sodium 1
--- NOTE | 2021-11-24 07:54 | HMH.HP ---
*Admission Date: 11/23/21 *Chief complaint: Fall with right hip pain *History of present illness: 76-year-old female sustained a fall at home yesterday resulting in right hip injury. Patient had immediate onset of right hip pain with inability to ambulate. She presented to the emergency department where she was found to have a comminuted right intratrochanteric femur fracture. Orthopedic surgeon was contacted by the ER for review of films. CT scan of the hip was performed. Patient has been admitted for surgical repair. Medical history is significant for COPD, chronic respiratory failure with 2 L of oxygen via nasal cannula use continuously, history of DVT after surgery. Patient lives with a daughter. There are no steps to navigate. Patient uses a walker as an assistive device [facility] History I have reviewed the patient's past medical history: Yes Medical History: Reports:: Cancer, Chronic Obstructive Pulmonary Disease (COPD), Home Oxygen (2L), Hyperlipidemia, Lung Disease (Recent neumonia/bronchitis) Denies:: Diabetes Mellitus Type 1, Diabetes Mellitus Type 2, MRSA, Seizures *Have you ever received a pneumonia vaccine?: Yes *Have you received a flu vaccine this season?: No Other Medical History: Reports: Anemia, Hypothyroidism, Thyroid Disease Anesthesia experience/problems:: None Laterality Cases: Left: Other Other Surgeries: Yes: Cancer Surgery (nodule removed from L lung), Colonoscopy, EGD, Hysterectomy-Total Amputation: No Fractures: Yes (Left wrist) - *Social History Last grade of school completed: High school graduate Smoking Status: Former smoker Tobacco Type: cigarettes # Packs/Day (cigarettes): 1 Alcohol Intake: never Substance Use Type: denies use *Occupational Status:: retired Housing: house Household Members: family *Travel in the last 8 weeks: None Family Hx:: Cancer, Coronary Artery Disease, Heart Attack, Hyperlipidemia, Hypertension Review of Systems - Review of Systems Review of systems:: pertinent systems reviewed and negative unless documented below - Constitutional Denies body ache(s), Denies chills, Denies lack of energy - Eyes Denies blurry vision, Denies change in vision - ENT Denies abnormal hearing, Denies difficulty swallowing - *Cardiovascular Denies chest pain, Denies chest pain at rest, Denies chest pain with activity - *Respiratory Reports shortness of breath with activity, Denies change in phlegm color, Denies chest congestion, Denies cough - *Gastrointestinal Denies bloating, Denies heartburn - *Musculoskeletal Reports joint pain, Reports deformity, Reports limited joint movement, Reports stiffness - *Neurologic Reports abnormal walking, Denies abnormal hearing, Denies behavioral changes Meds Home Medications Medication Instructions Recorded Confirmed Type Amitriptyline HCl [Elavil 10mg 50 mg PO HS 11/01/21 11/23/21 History tablet] Cyanocobalamin (Vitamin B-12) 1,000 mcg PO DAILY 11/01/21 11/23/21 History [Vitamin B-12 1000mcg Tablet] Ezetimibe [Zetia] 10 mg PO DAILY 11/01/21 11/23/21 History Levothyroxine Sodium 175 mcg PO DAILY 11/01/21 11/23/21 History [Levothyroxine 175mcg (0.175mg) Tab] Levothyroxine Sodium 88 mcg PO DAILY 11/01/21 11/23/21 History [Levothyroxine 88mcg (0.088mg) Tab] Meclizine HCl [Antivert 25mg 25 mg PO NEEDED PRN 11/01/21 11/23/21 History tablet] buPROPion HCL [Wellbutrin SR 100mg 200 mg PO DAILY 11/01/21 11/23/21 History Tablet] Allergies Allergy/AdvReac Type Severity Reaction Status Date / Time No Known Allergies Allergy Verified 11/01/21 19:04 Exam Vital signs and Labs for Last 24 Hours: Temp Pulse Resp BP Pulse Ox 97.9 F 107 H 17 102/73 L 97 11/24/21 01:56 11/24/21 01:56 11/24/21 01:56 11/24/21 01:56 11/24/21 00:03 Laboratory Results - last 24 hr 11/23/21 20:03: SARS-CoV-2 (PCR) Not detected, Influenza A Untype (PCR) Not detected, Influenza Type B (PCR) Not detected 11/24/21 0
--- NOTE | 2021-11-24 09:08 | XR_ITS ---
FINAL REPORT CLINICAL HISTORY: GAMMA, Fluoro time: 48.4 FINDINGS: FLUORO TIME PROCEDURE: Fluoroscopy in the operating room. HISTORY: Right hip FINDINGS: Fluoroscopy time was provided by the radiology department for the clinical service. Eighty-five films were obtained. Fluoroscopy exposure time: 48.4 seconds. IMPRESSION: See above Reviewed, Interpreted and Dictated by Khoa Garber III, MD Transcribed by Radha Aguirre Authenticated by Khoa Garber III, MD on 11/25/2021 02:43:16 PM [facility]
--- NOTE | 2021-11-24 09:21 | HMH.OPNOTE ---
Date of procedure: 11/24/21 Pre-op Diagnosis:: Right intertrochanteric femur fracture Post-op Diagnosis:: Same Procedure performed:: Full medullary nail fixation right intertrochanteric femur fracture Surgeon:: Jose Mcguire JR, MD BOOK SHELVER:: Mimi Miguel Anesthesia: GETA Estimated blood loss (mL): 150 Operative findings:: Improved alignment with safe intraosseous hardware placement, tip apex distance less than 20 mm. Operative note:: 76-year-old female with right intertrochanteric femur fracture as a result of a ground-level fall. I had a discussion with her and her daughter regarding further management, recommended cephalomedullary nail fixation of her right intertrochanteric femur fracture. They were amenable with the plan. We discussed the risk and benefits of surgery. Risks included but were not limited to pain, bleeding, infection, damage to adjacent structures, need for further surgery, wound healing complications, loss of limb, . Patient expressed verbal consent and written consent was obtained for the above procedure. Patient was identified in preoperative holding. Operative site was marked in indelible ink. History, physical, consent were reviewed and updated. Patient was surrendered to the anesthesia team, taken to the operative suite. The patient was secured onto the fracture table with a belt and tape across the arms and upper chest area. Anesthesia was induced. A perineal post had been placed. The operative extremity was secured down and longitudinal traction applied through the post. The contralateral extremity was secured with pillow and kaycee wrap to arm. C-arm fluoroscopy was then brought in to check fracture alignment, and it was found to be acceptable on AP and lateral views. The operative extremity was prepped and draped in the usual sterile fashion. The operative team donned sterile gowns and gloves and a timeout was called. All in attendance agreed regarding the patient's identity, procedure, operative site. Weight-based dose of antibiotics was given prior to incision. A stab wound incision was made proximal to the tip of the greater trochanter and a Steinmann pin placed on the tip of the greater trochanter, localizing it on AP and lateral views to be in the center. This was placed down into the femur to the level of the lesser trochanter. The knife was used to enlarge the opening proximally and a guide placed over the pin down to the tip of the greater trochanter. The drill was used through the guide to open the greater trochanter. A ball-tipped guidewire was placed in the canal was reamed to appropriate diameter. The cephalomedullary nail was advanced over the guidewire to appropriate position. The placement was checked on AP and lateral views. The triple sleeve cannula was then placed through the guide connected onto the insertion handle. This was placed against the skin and then an incision made through the skin and fascia down onto bone. The cannula was then placed down until it was flush on the bone. The guide pin was drilled up into the center of the femoral head on AP and lateral views. The inner sleeve was then removed, and the length of the blade was measured. Step reamer was advanced to appropriate depth over the wire. A 10.5 mm lag screw of appropriate length was placed with tip apex distance less than 20 mm. Attention was then turned proximally, and the flexible screwdriver was used to tighten down the proximal screw to the lag screw. The distal screws and cannulas were then placed through the targeting device and a small incision made through the skin and fascia allowing it to be placed flush against bone. Drill was used to drill through both cortices. An interlocking bolt of appropriate length was placed after drilling. Orthogonal fluoroscopic views demonstrated appropriate fracture alignment, safe intraosseous hardware placement with appropriate tip apex distance and no apparent fracture at the
--- NOTE | 2021-11-24 09:37 | P.PN_ITS ---
[facility] Anesthesia Record Part I Intake, IV Amount: 300 Estimated blood loss (mL): 150 Urine output (mL): 200 Blood Pressure: 143/78 SaO2: 100 Pulse Rate: 96 Respiratory Rate: 13 Temperature: 97.7 F Patient is:: Awake Stable to PACU at:: 09:35
[2021-11-24 09:51] LABS: Microscopic,Cath URINE MICROSCOPIC (MICROSCOPIC)
--- NOTE | 2021-11-24 10:20 | SUR.PHASEI ---
Detailed report called to Dorothy Harden RN. Pt was then transported to her room by myself and ANILA Ku. Family was met outside of pacu on the way to her room and followed.
--- NOTE | 2021-11-24 10:40 | PC.NURSE ---
Clarified synthroid dosage w/ daughter. Pt takes both a 75mcg and an 88mcg pills DAILY. This was recorded in the med rec and relayed to Ashwin Dorsey.
[2021-11-24 10:52] LABS: INR 1.06 (0.9-1.1); Prothrombin Time 11.9 seconds (10.1-12.5)
--- NOTE | 2021-11-24 11:18 | HMH.PHAINT ---
Addendum entered and electronically signed by Willian Hester PharmD 11/24/21 11:19: OF NOTE, DAUGHTER STATES THE PATIENT TAKES BOTH LEVOTHYROXINE 75 MCG AND LEVOTHYROXINE 88 MCG DAILY. Original Note: MEDICATION RECONCILIATION COMPLETE USING LIST FROM ER DISCHARGE (11/01/21) AND ASKING PATIENT/DAUGHTER VIA NEGRITO GARRIDO RN.
--- NOTE | 2021-11-24 11:22 | P.CONPHA_ITS ---
[facility] Pharmacy VTE Monitoring - Patient Demographics Admission date: 11/24/21 Report Date: 11/24/21 Time: 11: Allergies/Adverse Reactions: Patient Allergies No Known Allergies Allergy (Verified 11/01/21 19:04) Height: 1.5 m Weight: 47.4 kg Patient Problems: Current Active Problems Fracture of femur (Acute) Fall at home (Acute) COPD (chronic obstructive pulmonary disease) (Acute) Chronic respiratory failure (Acute) - VTE Risk Labs: VTE Related Lab Results Hgb 10.7 g/dL (12.2-16.2) L 11/24/21 05:05 Hct 34.5 % (37.0-47.0) L 11/24/21 05:05 Plt Count 284 K/mm3 (142-424) 11/24/21 05:05 PT 11.9 seconds (10.1-12.5) 11/24/21 10:30 INR 1.06 (0.9-1.1) 11/24/21 10:30 BUN 19 mg/dl (7-17) H 11/24/21 05:05 Creatinine 0.70 mg/dl (0.52-1.04) 11/24/21 05:05 Estimated Creat Clear 36 mL/min (50-200) 11/24/21 05:05 Was VTE Risk Assessment Performed: Yes VTE Score: 4 VTE Risk Level: Low Risk Clinical Trial Participant: No - Prophylaxis VTE Prophylaxis Ordered?: Yes Types of VTE Prophylaxis: TEDS Knee High, Pharmacological Location of Applied Device: Left Leg Pharmacologic Type: Enoxaparin
[2021-11-24 11:23] LABS: Appearance,Urine/Cath CLEAR (Clear); Bilirubin,Cath Negative (Negative); Blood, Urine/Cath Negative (Negative); Color,Urine/Cath YELLOW (Yellow); Glucose,Urine/Cath (UA) Negative (Negative); Ketones,Urine/Cath Negative (Negative); Leukocyte Esterase,Cath Negative (Negative); Nitrate,Cath Negative (Negative); Protein,Urine/Cath Negative (Negative); Specific Gravity, Urine/Cath >= 1.030 (1.005-1.030); Urobilinogen,Cath 0.2 EU/dl (0.2)
[2021-11-24 11:44] LABS: Bacteria,Urine/Cath TRACE /lpf; Squamous Epithelial Ur./Cath Occasional #/hpf (0-5)
[2021-11-25] VITALS: BP 99/58; PULSE 109; RESP 16; TEMP 36.9; O2SAT 97
[2021-11-25 05:00] VITALS: BMI 22.7
[2021-11-25 06:57] LABS: Anion Gap 7.5 mEq/L (5-15); Blood Urea Nitrogen 15 mg/dl (7-17); Calcium 7.6 mg/dl (8.4-10.2); Carbon Dioxide 28 mmol/L (22.0-30.0); Chloride 104 mmol/L (98-107); Creatinine Clearance Estimated 38 mL/min (50-200); Estimated Glomerular Filt Rate 97 ml/min (>60); GFR (African American) 117 ML/MIN (>60); Glucose 80 mg/dl (74-100); Potassium 4.5 mmoL/L (3.5-5.1); Sodium 135 mmol/L (136-145)
[2021-11-25 07:00] LABS: Basophils # 0.1 K/mm3 (0-0.2); Basophils % 0.5 % (0.1-2.0); Eosinophils # 0.1 K/mm3 (0.0-0.4); Eosinophils % 0.3 % (0.1-12.0); Hematocrit 28.8 % (37.0-47.0); Lymphocytes # 1.6 K/mm3 (0.7-4.5); Lymphocytes % 11.4 % (10-50); Mean Corpuscular HGB Conc 31.3 g/dL (31.8-35.4); Mean Corpuscular Hemoglobin 30.5 pg (27.0-31.2); Mean Corpuscular Volume 97.3 fl (81-99); Monocytes # 1.2 K/mm3 (0.1-1.0); Monocytes % 8.7 % (1.7-9.3); Neutrophils % 79.2 % (37.0-80.0); Platelet Count 236 K/mm3 (142-424); Red Blood Count 2.96 M/mm3 (4.20-5.40); Red Cell Distribution Width 14.7 % (11.5-17.5); White Blood Count 13.9 K/mm3 (4.8-10.8)
--- NOTE | 2021-11-25 07:45 | P.PN_ITS ---
Internal Medicine - PN: Subj *Date: 11/25/21 *Time: 07:45 Interval history: Patient underwent successful nailing of right intertrochanteric fracture yesterday. She reports pain is controlled. Exam Vital signs and Labs for Last 24 Hours: Temp Pulse Resp BP Pulse Ox 98.4 F 109 H 16 99/58 L 97 11/25/21 00:00 11/25/21 00:00 11/25/21 00:00 11/25/21 00:00 11/25/21 00:00 Laboratory Results - last 24 hr 11/24/21 10:30: PT 11.9, INR 1.06 11/24/21 : Urine Color Yellow, Urine Appearance Clear, Urine pH 6.0, Ur Specific [place] >= 1.030, Urine Protein Negative, Urine Glucose (UA) Negative, Urine Ketones Negative, Urine Blood Negative, Urine Nitrate Negative, Urine Bilirubin Negative, Urine Urobilinogen 0.2, Ur Leukocyte Esterase Negative, Urine RBC None, Urine WBC None, Ur Squamous Epith Cells Occasional, Urine Bacteria Trace 11/25/21 06:05: WBC 13.9 H, RBC 2.96 L, Hgb 9.0 L, Hct 28.8 L, MCV 97.3, MCH 30.5, MCHC 31.3 L, RDW 14.7, Plt Count 236, MPV 9.0, Neut % (Auto) 79.2, Lymph % (Auto) 11.4, [place] % (Auto) 8.7, Eos % (Auto) 0.3, Baso % (Auto) 0.5, Neut # (Auto) 11.0 H, Lymph # (Auto) 1.6, [place] # (Auto) 1.2 H, Eos # (Auto) 0.1, Baso # (Auto) 0.1 11/25/21 06:05: Sodium 135 L, Potassium 4.5, Chloride 104, Carbon Dioxide 28, Anion Gap 7.5, BUN 15, Creatinine 0.60, Estimated Creat Clear 38, Estimated GFR 97, Est GFR ( Amer) 117, Glucose 80, Calcium 7.6 L I & O for Last 24 hours: Intake & Output 11/22/21 11/23/21 11/24/21 11/25/21 10:59 10:59 11:59 11:59 Intake Total 600 / 600 Output Total 850 / 850 Balance -250 / -250 Weight 112 lb 11.2 oz - Constitutional no acute distress - *Routine Respiratory Exam Present: other Comments: Fair aeration with diminished breath sounds left base - *Routine Cardiovascular Exam Present: RRR - *Routine Abdominal Exam Present: soft, normoactive bowel sounds - *Routine Extremities Exam Present: pulses intact. Absent: edema Assessment and Plan (1) Fracture of femur Status: Acute Qualifiers: Encounter type: initial encounter Femur location: unspecified portion of femur Fracture type: closed Fracture morphology: unspecified fracture morphology Laterality: right Qualified Code(s): S72.91XA - Unspecified fracture of right femur, initial encounter for closed fracture Category: Medical Code(s): S72.90XA - Unspecified fracture of unspecified femur, initial encounter for closed fracture (2) Fall at home Status: Acute Category: Medical Code(s): W19.XXXA - Unspecified fall, initial encounter; Y92.009 - Unspecified place in unspecified non-institutional (private) residence as the place of occurrence of the external cause (3) COPD (chronic obstructive pulmonary disease) Status: Acute Category: Medical Code(s): J44.9 - Chronic obstructive pulmonary disease, unspecified (4) Chronic respiratory failure Status: Acute Category: Medical Code(s): J96.10 - Chronic respiratory failure, unspecified whether with hypoxia or hypercapnia - Assessment and plan all Dx Assessment and Plan for all problems:: 1. PT eval today 2. Continue DVT prophylaxis with Lovenox 3. Care management consult for likely SNF placement
--- NOTE | 2021-11-25 07:49 | P.PN_ITS ---
Subjective Date: 11/25/21 Time: 07:49 PN: Obj Ex Vital signs: Temp Pulse Resp BP Pulse Ox 98.4 F 109 H 16 99/58 L 97 11/25/21 00:00 11/25/21 00:00 11/25/21 00:00 11/25/21 00:00 11/25/21 00:00 - Constitutional no acute distress - Routine HEENT Exam Head: Present: normocephalic, atraumatic - Routine Neck Exam Present: supple - Routine Respiratory Exam Absent: accessory muscle use, respiratory distress - Routine Cardiovascular Exam Present: RRR - Routine Abdominal Exam Present: soft - Detailed Lower Extremity Exam Hip: Right normal inspection (Right lower extremity dressing clean, dry, intact. Distally neurovascularly intact.) - Urinary Catheter Management Lees Cath placed during this visit: no Progress Note: A&P (1) Fracture of femur Status: Acute (2) Fall at home Status: Acute (3) COPD (chronic obstructive pulmonary disease) Status: Acute (4) Chronic respiratory failure Status: Acute Assessment and Plan for All Diagnoses:: 76-year-old female status post cephalomedullary nail fixation right intertrochanteric femur fracture. She had an uneventful day postoperatively yesterday. Plan to get her up for physical therapy today. 23 hours antibiotics. PT/OT. DVT prophylaxis. I sent prescriptions in for oxycodone and Lovenox when she is able to discharge. From surgical perspective, once she is cleared per PT and case management, okay for discharge. Sutures are a bsorbable. Okay to change dressing as needed, remove in 2 weeks. Follow-up in 2 to 6 weeks for wound check, x-rays.
[2021-11-25 08:00] VITALS: BP 98/58; PULSE 118; RESP 17; TEMP 36.6; O2SAT 92
[2021-11-25 08:20] VITALS: BP 141/72; PULSE 101; TEMP 36.4
--- NOTE | 2021-11-25 08:20 | HMH.ANESII ---
[facility] Anesthesia Record Part II Discharge Time: 10:15 Destination: Second Floor PACU nurse assessment reviewed?: Yes Patient Condition:: Good Anesthesia Complications:: None Swallowing reflex intact?: Yes Cyanosis?: No Blood Pressure: 141/72 Pulse Rate: 101 Temperature: 97.5 F Mental Status: Alert & Oriented Pain level:: 0 Nausea and/or vomitting:: None Intake, IV Amount: 0
--- NOTE | 2021-11-25 10:05 | HMH.OTEV ---
OT Inpatient Evaluation Rehab OT IP Evaluation Start: 11/24/21 09:31 Freq: ONCE Status: Complete Protocol: Document 11/25/21 09:51 HOLDENSHELL (Rec: 11/25/21 10:04 YAMIL [id number]) Rehab OT IP Assessment Subjective History 76 year old male referred to OP IP services for right intertrochanteric femur fracture as a result of a ground-level fall after tripping over the . Patient has lived with dtr since in 2 story home with 3-4 TAMRA 2* a functional decline with a hx of falling. Prior to , Patient lived independently in 1 story home with 2-3 TAMRA. Indepedent with ADLs and used rollator to ambulate outside of home. Subjective I can try to get up. Instructed Patient on proper hand/foot placement to complete supine->sit @ EOB requiring Max A x2 with max verbal cueing. Instructed Patient on SPT from EOB-> recliner requiring Max A X2 with usage of RW with exteneded time. Objective Patient Orientation Person,Place,Name,Birthday, Year Upper Extremity Gross ROM WNL Bed Mobility bed mobility - supine/sit Assist Level Maximum x 2 (75% assist) Transfer Training Sit/Stand/Pivot Transfer Assist Level Maximum x 2 (75% assist) Chair Transfer Ability Maximum x 2 (75% assist) Chair Transfer Technique Stand Step Pivot Chair Transfer Assistive Devices Rolling Walker Rehab OT IP prob,goals,plan Problems Date of Evaluation: 11/25/21 OT IP Problems Bed Mobility,Transfers,Gait, Balance,Self care,Safety Rehab Potential Rehab Potential Good Equipment Needs Assistive Devices Rolling / Wheeled Walker Plan OT intervention Plan Bed Mobility,Transfers,Gait, Balance,Self care,Safety, Therapeutic Exercise OT Plan Frequency Daily Duration LOS Discharge Goals Bed Mobility Ability Assistance x1 Sit to Stand Chair Transfer Ability Ma
--- NOTE | 2021-11-25 10:08 | HMH.PTEV ---
Physical Therapy Evaluation Rehab PT IP Evaluation Start: 11/24/21 09:31 Freq: ONCE Status: Active Protocol: Document 11/25/21 09:00 JOE (Rec: 11/25/21 10:08 ISMAELANTHONY [id number]) Subjective/History History History This is the initial IP PT evalaution for Clarissa Quach. Pt is a 76 y/o female admitted to [facility] s/p mechanical fall at home causing intertrochanteric fx. Pt had IM nail placement. Pt's family in room to give history . Pt got tangled in oxygen cord at home causing fall. Pt needed AD and SBA for mobility at home . Family states mobility was limited due to shuffling gIT PATTERN, QUICK FATIGUE, AND POOR MPTIVATION. Subjective Subjective pT C/O SEVERE PAIN IN rle W/ MVMNT AND WBING Rehab PT IP Eval Objective Appearance Patient Behavior Fatigued,Fearful Patient Orientation Name,Birthday,Year,Situation Difficulty following instructions mild Speech Pattern Appropriate Ambulation Patient Able to Ambulate Yes Ambulation Observation IP General Gait Pattern Observation Antalgic Gait,Shuffling Step, Hips Posterior to CHRISTO,Decrease Weight Bear (R),Decrease Stride Lngth (R),Decrease Stride Lngth (L) Ambulation Distance (feet) 2 Ambulation Assistive Device Rolling Walker Ambulation Ability Maximum x 2 (75% assist) Balance Ability to Arise Unable Sitting Balance Leans or slides in chair Standing Balance Unsteady Dynamic Sitting Balance Ability Fair Dynamic Standing Balance Ability Zero Transfers Bed Transfer Ability Maximum x 2 (75% assist) Chair Transfer Ability Maximum x 2 (75% assist) Sit to Stand Bed Transfer Ability Maximum x 2 (75% assist) Sit to Stand Chair Transfer Ability Maximum x 2 (75% assist) Rehab PT IP prob,goals,plan Problems Date of Evaluation: 11/25/21 PT IP Problems Bed Mobility,Transfers,Gait, Balance,Self care,Safety Rehab Potential Rehab Potential Poor Equipment Needs Assistive Devices Rolling / Wheeled Walker Plan PT Intervention Plan Bed Mobility,Transfers,Gait, Balance,Self care,Safety,
--- NOTE | 2021-11-25 11:28 | SW/DCPLANNER ---
Addendum entered by [facility] 11/26/21 14:23: Dr Minor will follow at [facility]. Addendum entered by [facility] 11/26/21 10:22: I have updated Beverley wilson/ [facility] that the plan for this patient is to discharge tomorrow. Patient will need a COVID swab prior to discharge. Addendum entered by [facility] 11/25/21 15:21: Beverley wilson/ [facility] has accepted this patient once medically stable for discharge: patient will need an additional COVID swab prior to discharge. Patient could be ready for discharge tomorrow pending no setbacks: family agrees with this plan. Addendum entered by [facility] 11/25/21 14:27: So wilson/ [facility] has stated that they are currently not in netowrk with patients insurance. Patients daughter is agreeable to [facility]: patient information has been faxed. Original Note: I spoke with this patient and her daughters regarding discharge plans. Daughters have stated that patient would benefit from SNF level of care prior to returning home. Family is interested in placement at [facility]. I spoke with So from [facility] and female beds are available: information has been faxed. I explained to daughters the importance of having another facility in mind in case [facility] denied patient admission:daughters are agreeable. Patient currently wears home O2 at 2L. I will continue to follow up with patient and family.
[2021-11-25 12:00] VITALS: BP 100/61; PULSE 127; RESP 18; TEMP 36.7; O2SAT 91
[2021-11-25 16:00] VITALS: BP 106/58; PULSE 117; RESP 16; TEMP 37.2; O2SAT 96
--- NOTE | 2021-11-25 16:01 | PC.NURSE ---
1600 PT HAS RESTED INTERMITTENTLY THIS SHIFT, PAIN CONTROLLED WITH PRN MEDS PER EMAR. VSS, AFEBRILE. PT A&O X 4. LUNGS WITH SCATTERED RHONCI/WHEEZES. CONTINUES TO WEAR O2 AT 2L/NC. ABD SOFT, BOWEL SOUNDS ACTIVE X 4 QUADS. NO BM THIS SHIFT, F/C IN PLACE. DRESSING TO RIGHT HIP C/D/I. IV SALINE LOCKED. HEART RATE REGULAR, 1+ EDEMA NOTED TO BLE, UNCHANGED. TOLERATING REGULAR DIET. UP TO CHAIR WITH PT TODAY, TOLERATED WELL. NO NEEDS AT THIS TIME. FAMILY AT BEDSIDE
[2021-11-25 20:00] VITALS: BP 108/55; PULSE 109; RESP 16; TEMP 36.8; O2SAT 91
--- NOTE | 2021-11-26 03:41 | PC.NURSE ---
Pt has slept in intervals this shift. BLT lungs with Expiratory rhonchi and wheezing throughout, bowel sounds present in all 4 quadrants. Pt remains on 2LNC, IV S/L, Pt has voided per bedside commode with x2 assistance, Pt medicated per eMAR for pain this shift. Pt denies headache, SOA, N/V. VSS
[2021-11-26 04:00] VITALS: BP 123/64; PULSE 107; RESP 16; TEMP 36.9; O2SAT 95
--- NOTE | 2021-11-26 06:57 | HMH.ACPN2 ---
Internal Medicine - PN: Subj *Date: 11/26/21 *Time: 06:58 Interval history: Patient without complaints this morning. She denies chest pain and shortness of breath. Daughter is at bedside. Daughter reports physical therapy was a challenge due to the patient's level of weakness. Exam Vital signs and Labs for Last 24 Hours: Temp Pulse Resp BP Pulse Ox 98.4 F 107 H 16 123/64 95 11/26/21 04:00 11/26/21 04:00 11/26/21 04:00 11/26/21 04:00 11/26/21 04:00 Laboratory Results - last 24 hr 11/25/21 06:05: WBC 13.9 H, RBC 2.96 L, Hgb 9.0 L, Hct 28.8 L, MCV 97.3, MCH 30.5, MCHC 31.3 L, RDW 14.7, Plt Count 236, MPV 9.0, Neut % (Auto) 79.2, Lymph % (Auto) 11.4, [place] % (Auto) 8.7, Eos % (Auto) 0.3, Baso % (Auto) 0.5, Neut # (Auto) 11.0 H, Lymph # (Auto) 1.6, [place] # (Auto) 1.2 H, Eos # (Auto) 0.1, Baso # (Auto) 0.1 11/25/21 06:05: Sodium 135 L, Potassium 4.5, Chloride 104, Carbon Dioxide 28, Anion Gap 7.5, BUN 15, Creatinine 0.60, Estimated Creat Clear 38, Estimated GFR 97, Est GFR ( Amer) 117, Glucose 80, Calcium 7.6 L I & O for Last 24 hours: Intake & Output 11/23/21 11/24/21 11/25/21 11/26/21 10:59 11:59 11:59 11:59 Intake Total 840 / 840 720 / 720 Output Total 850 / 850 Balance -10 / -10 720 / 720 Weight 112 lb 11.2 oz Narrative: Patient looks weak. Lungs are clear anteriorly and diminished posteriorly and at the bases. Heart has a regular rate and rhythm. Abdomen is thin and soft. Extremities are warm to the touch Assessment and Plan (1) Fracture of femur Status: Acute Qualifiers: Encounter type: initial encounter Femur location: unspecified portion of femur Fracture type: closed Fracture morphology: unspecified fracture morphology Laterality: right Qualified Code(s): S72.91XA - Unspecified fracture of right femur, initial encounter for closed fracture Category: Medical Code(s): S72.90XA - Unspecified fracture of unspecified femur, initial encounter for closed fracture (2) Fall at home Status: Acute Category: Medical Code(s): W19.XXXA - Unspecified fall, initial encounter; Y92.009 - Unspecified place in unspecified non-institutional (private) residence as the place of occurrence of the external cause (3) COPD (chronic obstructive pulmonary disease) Status: Acute Category: Medical Code(s): J44.9 - Chronic obstructive pulmonary disease, unspecified (4) Chronic respiratory failure Status: Acute Category: Medical Code(s): J96.10 - Chronic respiratory failure, unspecified whether with hypoxia or hypercapnia (5) Postoperative anemia due to acute blood loss Status: Acute Category: Medical Code(s): D62 - Acute posthemorrhagic anemia - Assessment and plan all Dx Assessment and Plan for all problems:: 1. Patient has been accepted to [facility]. Once medically stable she will be transferred. CBC is pending this morning
[2021-11-26 07:08] LABS: Basophils % 0.3 % (0.1-2.0); Eosinophils # 0.1 K/mm3 (0.0-0.4); Eosinophils % 0.5 % (0.1-12.0); Hemoglobin 8.5 g/dL (12.2-16.2); Lymphocytes # 1.5 K/mm3 (0.7-4.5); Lymphocytes % 9.6 % (10-50); Mean Corpuscular HGB Conc 31.4 g/dL (31.8-35.4); Mean Corpuscular Hemoglobin 30.6 pg (27.0-31.2); Mean Corpuscular Volume 97.4 fl (81-99); Mean Platelet Volume 8.5 fl (7.4-10.4); Monocytes # 1.1 K/mm3 (0.1-1.0); Monocytes % 7.1 % (1.7-9.3); Neutrophils # 12.6 K/mm3 (1.8-7.8); Neutrophils % 82.6 % (37.0-80.0); Platelet Count 192 K/mm3 (142-424); Red Blood Count 2.77 M/mm3 (4.20-5.40); Red Cell Distribution Width 14.7 % (11.5-17.5); White Blood Count 15.2 K/mm3 (4.8-10.8)
[2021-11-26 07:20] LABS: MANUAL DIFFERENTIAL MANUAL DIFFERENTIAL (MANUAL DIFF)
[2021-11-26 08:00] VITALS: BP 118/65; PULSE 112; RESP 18; TEMP 36.7; O2SAT 97
[2021-11-26 08:30] VITALS: PULSE 112; RESP 18; O2SAT 97
[2021-11-26 12:24] LABS: Lymphocytes % 4 % (10-50); Monocytes % 5 % (2-9); Neutrophils % 91 % (42-76); Nucleated Red Blood Cells 1; Platelet Estimate Normal; Total Cells Counted 100
--- NOTE | 2021-11-26 14:11 | PC.NURSE ---
OFFERED PT NUMEROUS TIMES WITH ASSISTANCE TO BSC TO VOID, STATES SHE DOESN'T NEED TO. ENCOURAGED PO FLUIDS, WATER AT BEDSIDE/CHAIRSIDE. FAMILY VISITING AND ENCOURAGING PT WELL. WILL CONTINUE TO MONITOR
[2021-11-26 16:00] VITALS: BP 122/70; PULSE 110; RESP 18; TEMP 36.6; O2SAT 97
--- NOTE | 2021-11-26 16:14 | PC.NURSE ---
1610 PT HAS RESTED INTERMITTENTLY. PAIN WELL CONTROLLED, MEDICATED PER EMAR. HAS WORKED WITH PHYSICAL THERAPY. HAS BEEN UP TO BEDSIDE CHAIR WITH ASSIST X2. VSS. HEART RATE REGULAR, AFEBRILE. LUNGS WITH SCATTERED RHONCHI AND WHEEZES, WEARS 02 AT 2L/NC. USING INCENTIVE SPIROMETER. ABD SOFT, PASSING FLATUS. VOIDED ONCE THIS SHIFT. NO BM, ENCOURAGED INCREASED PO FLUID INTAKE. DRESSING TO RIGHT HIP C/D/I. TRACE EDEMA TO BLE, UNCHANGED. DENIES CHEST PAIN. IV S/L, PATENT, TOLERATED REGULAR DIET. FAMILY AT BEDSIDE. EXPRESSES TO BATHE THIS EVENING BEFORE BED. JD LIGHT WITHIN REACH. NO NEEDSA THIS TIME
[2021-11-26 20:23] VITALS: O2SAT 98
[2021-11-26 20:30] VITALS: BP 115/74; PULSE 110; RESP 18; TEMP 36.7; O2SAT 97
[2021-11-27 04:10] VITALS: BP 115/85; PULSE 108; RESP 18; TEMP 36.8; O2SAT 97
--- NOTE | 2021-11-27 04:10 | PC.NURSE ---
PT HAS RESTED WILL THIS SHIFT WITH NO C/O PAIN. VS STABLE CHARTED, DAUGHTER REMAINS AT BEDSIDE. NO ACUTE CHANGES FROM PREVIOUS ASSESSMENT. WILL CONTINUE TO MONITOR.
[2021-11-27 06:46] LABS: Basophils % 0.3 % (0.1-2.0); Eosinophils # 0.2 K/mm3 (0.0-0.4); Eosinophils % 1.7 % (0.1-12.0); Hematocrit 25.8 % (37.0-47.0); Hemoglobin 8.1 g/dL (12.2-16.2); Lymphocytes # 1.3 K/mm3 (0.7-4.5); Lymphocytes % 10.8 % (10-50); Mean Corpuscular HGB Conc 31.3 g/dL (31.8-35.4); Mean Corpuscular Hemoglobin 30.7 pg (27.0-31.2); Mean Corpuscular Volume 98.1 fl (81-99); Monocytes # 0.7 K/mm3 (0.1-1.0); Monocytes % 5.7 % (1.7-9.3); Neutrophils # 9.6 K/mm3 (1.8-7.8); Neutrophils % 81.5 % (37.0-80.0); Platelet Count 221 K/mm3 (142-424); Red Blood Count 2.63 M/mm3 (4.20-5.40); Red Cell Distribution Width 14.8 % (11.5-17.5); White Blood Count 11.8 K/mm3 (4.8-10.8)
--- NOTE | 2021-11-27 07:32 | HMH.DCSUM ---
General - General Admission date:: 11/24/21 HPI HPI: 76-year-old female sustained a fall at home yesterday resulting in right hip injury. Patient had immediate onset of right hip pain with inability to ambulate. She presented to the emergency department where she was found to have a comminuted right intratrochanteric femur fracture. Orthopedic surgeon was contacted by the ER for review of films. CT scan of the hip was performed. Patient has been admitted for surgical repair. Medical history is significant for COPD, chronic respiratory failure with 2 L of oxygen via nasal cannula use continuously, history of DVT after surgery. Patient lives with a daughter. There are no steps to navigate. Patient uses a walker as an assistive device Hospital Course Hospital Course: Patient was admitted for hip fracture and on the morning of Thursday, November 24 underwent Full medullary nail fixation right intertrochanteric femur fracture by Dr. Mcguire. Postoperative course was uncomplicated. Patient did have slow decline in H&H daily. Discharge hemoglobin was 8.1. PT evaluated the patient on the and continue to work with the patient during her hospital stay. SNF was felt to be necessary for patient to reach full benefits of rehabilitation. Patient was accepted to [facility]. She was discharged on November 27. Patient has chronic respiratory failure and uses oxygen 2 L at home up to 24 hours a day Patient has a history of blood clots and was continued on Lovenox 30 mg subcu every 12 hours during hospitalization. Patient will need to continue this for a total of 35 days at the facility. Patient's pain was controlled with oral narcotics which did cause some mild upset stomach. She was encouraged to take pain medication with food Patient was started on iron sulfate at discharge for her postoperative anemia Patient was discharged in stable condition Rehab potential is fair Prognosis is good Objective Vital signs: Temp Pulse Resp BP Pulse Ox 98.3 F 108 H 18 115/85 97 11/27/21 04:10 11/27/21 04:10 11/27/21 04:10 11/27/21 04:10 11/27/21 04:10 no acute distress - *Routine Respiratory Exam Present: CTA bilaterally - *Routine Cardiovascular Exam Present: RRR - *Routine Extremities Exam Absent: cyanosis, clubbing, edema Results Labs on day of discharge: Labs from last 24 hours 11/27/21 11/26/21 06:20 06:49 WBC 11.8 H RBC 2.63 L Hgb 8.1 L Hct 25.8 L MCV 98.1 MCH 30.7 MCHC 31.3 L RDW 14.8 Plt Count 221 MPV 9.0 Neut % (Auto) 81.5 H Lymph % (Auto) 10.8 [place] % (Auto) 5.7 Eos % (Auto) 1.7 Baso % (Auto) 0.3 Neut # (Auto) 9.6 H Lymph # (Auto) 1.3 [place] # (Auto) 0.7 Eos # (Auto) 0.2 Baso # (Auto) 0.0 Total Counted 100 Neutrophils % (Manual) 91 H Lymphocytes % (Manual) 4 L Monocytes % (Manual) 5 Nucleated RBCs 1 Platelet Estimate Normal DS: Diagnosis - Discharge Diagnosis (1) Fracture of femur Status: Acute (2) Fall at home Status: Acute (3) COPD (chronic obstructive pulmonary disease) Status: Acute (4) Chronic respiratory failure Status: Acute (5) Postoperative anemia due to acute blood loss Status: Acute Discharge Plan - Patient Discharge Instructions ACTIVITY: Continue current activity DIET: continue same diet Patient Instructions: Exercises to Help Prevent Falls, Femoral Fracture, DI for Femoral Fracture, DI for Hip Replacement, How to Prevent Falls, DI for Surgical Site Infection, Catheter-associated Urinary Tract Infection - Follow up Plan Follow up with: Jose Mcguire JR, MD [Physician] - Disposition: [facility] Condition at discharge:: Improved Home Medications: Home Medications Medication Instructions Recorded Confirmed Type Amitriptyline HCl [Elavil 10mg 50 mg PO HS 11/01/21 11/23/21 History tablet] Cyanocobalamin (Vitamin B-12) 1,000 mcg PO DAILY
[2021-11-27 07:51] LABS: Coronavirus 19, PCR Not Detected (NotDetected); Influenza A, PCR Not Detected (NotDetected); Influenza B, PCR Not Detected (NotDetected)
[2021-11-27 08:00] VITALS: BP 103/50; PULSE 106; RESP 18; TEMP 36.8; O2SAT 99
--- NOTE | 2021-11-27 10:47 | PC.NURSE ---
5422 report given to Cyndie at [facility], all records faxed
--- NOTE | 2021-11-27 14:58 | PC.NURSE ---
1455 PT TO [facility] AT THIS TIME
--- NOTE | 2021-11-29 12:17 | CARE MANAGER ---
[facility] follow up from patient's discharge. The nurse states sh eis doing very well and denies any questions or concerns. MARCIANO Brewster
== END 2021-11-27 14:55 | DRG 481 ==
LOC: UTC 19:57 → ER 19:58 → 2ND 11-25 07:17 → OB 11-25 22:42 → 2ND 11-28 13:49
PROVIDERS: Orthopaedic Surgery; Admitting Provider Family Medicine; Emergency Provider Student in an Organized Health Care Education/Training Program; PCP Nurse Practitioner Family; Visit Provider Family Medicine
PROC: 0QH636Z Insertion of Intramedullary Internal Fixation Device into Right Upper Femur, Percutaneous Approach (ICD-10-PCS; principal; 2021-11-24 07:30)
DX: S72.141A Displaced intertrochanteric fracture of right femur, initial encounter for closed fracture (principal); J96.10 Chronic respiratory failure, unspecified whether with hypoxia or hypercapnia; Z20.822 Contact with and (suspected) exposure to COVID-19; Z99.81 Dependence on supplemental oxygen; I25.10 Atherosclerotic heart disease of native coronary artery without angina pectoris; W01.0XXA Fall on same level from slipping, tripping and stumbling without subsequent striking against object, initial encounter; Y92.019 Unspecified place in single-family (private) house as the place of occurrence of the external cause; J44.9 Chronic obstructive pulmonary disease, unspecified; E03.9 Hypothyroidism, unspecified; D50.0 Iron deficiency anemia secondary to blood loss (chronic)
CPT/HCPCS: 27245; 36415; 71045; 73502; 73552; 73700; 76000; 80048; 81001; 83605; 85007; 85025; 85610; 93005; 96374; 97116; 97162; 97165; 97530; 99285; C1713; C1769; C9803; G0378; J2405; U0003; U0005

== ENCOUNTER → 2021-12-11 10:12 | Outpatient (CLI) | payer MEDICARE, SELFPAY ==
--- NOTE | 2021-12-11 10:25 | XR_ITS ---
FINAL REPORT CLINICAL HISTORY: femur fx FINDINGS: RIGHT FEMUR 2 views were obtained. There is a comminuted intertrochanteric proximal femur fracture with postoperative changes from ORIF. There is a separate lesser trochanter fracture fragment which is displaced medially 12 mm. There are mild vascular calcifications. No dislocation or complication is identified. IMPRESSION: Proximal femur fracture with postoperative changes of ORIF with no complication identified. Medially displaced lesser trochanter fracture fragment. Reviewed, Interpreted and Dictated by Khoa Garber III, MD Transcribed by Starr Pearce Authenticated by Khoa Garber III, MD on 12/11/2021 11:37:44 AM [facility]
== END ==
PROVIDERS: PCP Nurse Practitioner Family; Visit Provider Orthopaedic Surgery
DX: S72.91XA Unspecified fracture of right femur, initial encounter for closed fracture (principal)
CPT/HCPCS: 73552

== ENCOUNTER → 2022-01-10 11:33 | Outpatient (CLI) | payer MEDICARE, SELFPAY ==
--- NOTE | 2022-01-10 11:38 | XR_ITS ---
FINAL REPORT CLINICAL HISTORY: s/p rt gamma nail F/U FINDINGS: RIGHT HIP Two views of the right hip with an AP pelvis demonstrate no acute fracture or dislocation. An intramedullary yvonne and compression screw is present within the proximal right femur. The lesser trochanter exists as a free fragment. The visualized bony structures are well aligned. No soft tissue abnormality is seen. IMPRESSION: Postoperative changes as described. Reviewed, Interpreted and Dictated by Fuentes Rosenberg MD Transcribed by Starr Pearce Authenticated by Fuentes Rosenberg MD on 01/10/2022 01:27:25 PM [facility]
--- NOTE | 2022-01-10 11:38 | XR_ITS ---
FINAL REPORT CLINICAL HISTORY: right femur fracture, F/U S/P RT GAMMA NAIL FINDINGS: RIGHT FEMUR 2 views were obtained. An intramedullary yvonne is present in the proximal femoral diaphysis. There is no acute fracture or dislocation. There is no soft tissue abnormality. IMPRESSION: No acute bony abnormality. Reviewed, Interpreted and Dictated by Fuentes Rosenberg MD Transcribed by Starr Pearce Authenticated by Fuentes Rosenberg MD on 01/10/2022 01:27:22 PM [facility]
== END ==
PROVIDERS: PCP Family Medicine; Visit Provider Orthopaedic Surgery
DX: S72.91XA Unspecified fracture of right femur, initial encounter for closed fracture (principal)
CPT/HCPCS: 73502; 73552

== ENCOUNTER → 2022-03-07 13:43 | Outpatient (CLI) | payer MEDICARE, SELFPAY ==
--- NOTE | 2022-03-07 13:47 | XR_ITS ---
FINAL REPORT CLINICAL HISTORY: s/p rt gamma nail COMPARISON: January 10, 2022 FINDINGS: RIGHT HIP Two views of the right hip were reviewed. Again noted, is a comminuted intertrochanteric fracture. There are postoperative changes from ORIF. The bony alignment is stable. There is some interval healing of the fracture site. There is mild degenerative change of the hips. No soft tissue abnormality is seen. IMPRESSION: Comminuted intertrochanteric fracture with some interval healing. Postoperative changes from ORIF. Reviewed, Interpreted and Dictated by Khoa Garber III, MD Transcribed by Radha Aguirre Authenticated and [facility]
== END ==
PROVIDERS: PCP Family Medicine; Visit Provider Orthopaedic Surgery
DX: S72.101D Unspecified trochanteric fracture of right femur, subsequent encounter for closed fracture with routine healing (principal)
CPT/HCPCS: 73502

== ENCOUNTER → 2023-08-04 14:39 | Outpatient (CLI) | payer MEDICARE, SELFPAY ==
[2023-08-04 14:57] LABS: Microscopic, Urine URINE MICROSCOPIC (MICROSCOPIC)
[2023-08-04 15:40] LABS: Appearance,Urine CLOUDY (Clear); Bilirubin,Urine Negative (Negative); Blood, Urine 2+ (Negative); Color,Urine YELLOW (Yellow); Glucose,Urine (UA) Negative (Negative); Ketones,Urine 1+ (Negative); Leukocyte Esterase,Urine 2+ (Negative); Nitrate,Urine POSITIVE (Negative); Protein,Urine 1+ (Negative); Specific Gravity, Urine 1.025 (1.005-1.030); Urobilinogen,Urine 0.2 EU/dl (0.2)
[2023-08-04 16:23] LABS: Bacteria,Urine 4+ /lpf; WBC,Urine 20-50 #/hpf (0-3)
== END ==
PROVIDERS: PCP Family Medicine Hospice and Palliative Medicine; Visit Provider Family Medicine Hospice and Palliative Medicine
DX: G30.9 Alzheimer's disease, unspecified (principal); N39.0 Urinary tract infection, site not specified; B96.29 Other Escherichia coli [E. coli] as the cause of diseases classified elsewhere; B96.5 Pseudomonas (aeruginosa) (mallei) (pseudomallei) as the cause of diseases classified elsewhere
CPT/HCPCS: 81001; 87086